=== PATIENT | female | born 1935 | race Caucasian/White ===

== ENCOUNTER 2017-12-08 23:02 | Emergency (ER) | payer OTHER ==
[~2017-12-08] VITALS: Ht 165.1 cm; Wt 63.6 kg
[~2017-12-08 23:02] MED LIST: ALPRAZOLAM0.25 M2 PO; AMLODIPINE BESYL5 MG PO; ANTIVERT25 MG PO; ASCORBIC ACID500 M3 PO; ASPIRIN325 MG PO; ATORVASTATIN CA40 MG PO; CARDIZEM CD,CA120 MG PO; CARTIA XT120 MG PO; CO Q-10100 MG PO; ELIQUIS2.5 MG PO; FLONASE16 G1 BOTH NARES; RESTASIS 01 DROP/0.4 BOTH EYES; TOPROL XL100 MG PO; VITAMIN D31000 UNI2 PO; VITAMIN D35000 UNIT PO; VITAMIN PACK PO; XANAX0.5 MG PO
[2017-12-08 23:34] LABS: BASOPHIL (%) 0.1 % (0-1); EOSINOPHIL (%) 0.7 % (0-5); EOSINOPHIL COUNT 0.1 K/uL (0-0.3); HEMATOCRIT 41.6 % (36.0-46.0); HEMOGLOBIN 13.6 G/DL (11.9-15.5); IMMATURE GRANULOCYTE (%) 0.3 % (0.0-0.7); LYMPHOCYTE (%) 7.4 % (15-42); LYMPHOCYTE COUNT 0.6 K/uL (1.0-2.8); MCH 30.2 PG (29.0-34.0); MCHC 32.7 G/DL (30.0-36.0); MCV 92.4 FL (83-99); MONOCYTE (%) 10.4 % (3-12); MONOCYTE COUNT 0.9 K/uL (0-0.8); NEUTROPHIL (%) 81.1 % (45-76); PLATELET COUNT 214 K/uL (156-360); RBC DIS.WIDTH-CV 12.9 % (11.8-14.6); RBC DIS.WIDTH-SD 43.8 % (39-53); WHITE BLOOD COUNT 8.7 K/uL (4.1-10.2)
[2017-12-08 23:50] LABS: ALBUMIN 4.2 g/dL (3.2-4.8); CHLORIDE 106 mEq/L (99-109); POTASSIUM 3.6 mEq/L (3.7-5.4); SODIUM 141 mEq/L (136-147)
[2017-12-08 23:53] LABS: GLUCOSE 122 mg/dL (70-99); TOTAL PROTEIN 7.1 g/dL (6.4-8.3)
[2017-12-08 23:55] LABS: TOTAL BILIRUBIN 0.8 mg/dL (0.0-1.0)
[2017-12-08 23:56] LABS: ALKALINE PHOSPHATASE 64 IU/L (3-129)
[2017-12-08 23:57] LABS: CREATININE 0.8 mg/dL (0.6-1.3); GFR ESTIMATE (CALCULATED) > 59 mL/min/
[2017-12-08 23:58] LABS: AST (GOT) 21 IU/L (2-34); UREA NITROGEN (BUN) 13 mg/dL (9-23)
[2017-12-09] LABS: ALT (GPT) 15 IU/L (3-49)
[2017-12-09 00:03] LABS: TROP-I INTERPRETATION NEGATIVE; TROPONIN-I < 0.01 ng/mL (0.0-0.30)
[2017-12-09 02:44] VITALS: BP 148/77
== END 2017-12-09 02:47 | disposition home or self-care (01) ==
LOC: EME → EDBD 23:02 → EME 23:02
PROVIDERS: Emergency Medicine
DX: I48.91 Unspecified atrial fibrillation (principal); H93.A9 Pulsatile tinnitus, unspecified ear; E87.6 Hypokalemia; I10 Essential (primary) hypertension; Z79.01 Long term (current) use of anticoagulants; Z53.20 Procedure and treatment not carried out because of patient's decision for unspecified reasons
CPT/HCPCS: 71045; 80053; 83735; 84484; 85025; 93005; 99281; 99284